=== PATIENT | male | born 1990 | race Caucasian/White ===

== ENCOUNTER 2018-12-15 08:25 | Outpatient (CLI) | payer OTHER ==
--- NOTE | 2018-12-16 12:52 | MRI Report ---
Reason: LT WRIST PAIN Procedure Date: 12/15/2018 Accession Number: [id number] / [id number] Procedure: MRI - Wrist LT W/O CPT Code: FULL RESULT: EXAM: LEFT WRIST MRI WITHOUT CONTRAST EXAM DATE: 12/15/2018 10:12 AM. CLINICAL HISTORY: Left wrist pain. COMPARISON: None. TECHNIQUE: Multiplanar, multisequence T1-weighted and fluid-sensitive sequences of the wrist without contrast. Other: None. FINDINGS: Bones: No fractures. There is an erosion at the ulnar distal portion of the capitate. In the region of this erosion is a heterogeneous soft tissue structure that measures 6 x 7 x 9 mm (series [id number], image 10 and series 901, image 23). This has patchy T2 hyperintensity and T1 hypointensity. There appears to be some adjacent fat. Potentially, this is a focus of pannus. Cartilage: The articular cartilage is unremarkable. The triangular fibrocartilage complex is unremarkable. Ligaments: The scapholunate and lunotriquetral ligaments are intact. The visualized other intrinsic, extrinsic and collateral ligaments are unremarkable. Tendons: A mild amount of fluid is in the extensor compartment to tendon sheath. All of the visualized flexor and extensor tendons are intact. Musculature: No edema or fatty atrophy. Other: The contents of the carpal tunnel, including the median nerve, are unremarkable. Guyons canal is unremarkable. No ganglion cysts. No joint effusions. The subcutaneous tissues are unremarkable. IMPRESSION: 1. Erosion in the capitate with potential area of adjacent pannus. Recommend correlation to radiographs and inflammatory arthritis laboratory tests. 2. Mild tenosynovitis of the extensor compartment to tendon sheath. [facility] MUSCULOSKELETAL RADIOLOGY SECTION
== END 2018-12-15 08:26 | disposition home or self-care (01) ==
LOC: DI 08:25
DX: M25.532 Pain in left wrist (principal); M94.8X8 Other specified disorders of cartilage, other site; M65.832 Other synovitis and tenosynovitis, left forearm